=== PATIENT | male | born 1950 | race Hispanic/Latino ===

== ENCOUNTER 2024-04-25 21:35 | Emergency (ER) | payer SELFPAY ==
[~2024-04-25] VITALS: Ht 165.1 cm; Wt 74.8 kg
[2024-04-25 21:40] VITALS: BP 155/91; PULSE 66; RESP 20; TEMP 97.4
[2024-04-25] MEDS: FLUORESCEIN SODIUM 1 STRIP STRIP OP SCH (22:00)
[2024-04-25] MEDS: TETRACAINE HCL 0.5% 4 ML OPHTH SOLN OP SCH (22:00)
--- NOTE | 2024-04-25 23:07 | ERN ---
ED Note History of Present Illness Stated Complaint: C/O REDNESS TO LEFT EYE X 5 DAYS Chief Complaint: Eye Problems Time Seen by MD: 21:42 Time Seen by Midlevel: 21:42 Dictation: The patient is a 74-year-old male no past medical history who presents to the emergency department with complaints of left eye pain onset five days ago after he said he had a piece of trash in his eye. Patient denies any visual deficits but reports discomfort with sunlight. No other injuries reported. Past Medical History Past Medical History: No Pertinent History Surgical History: None RN Note Reviewed/Agreed w/PFSH: Yes Review of System Dictation Constitutional: Negative for fever,chills, and weight loss Eyes: Negative for discharge positive for redness, injury, left eye ENT: Negative for injury,pain or swelling Cardiovascular: Negative for chest pain, palpitations, and edema Respiratory: Negative for shortness of breath, cough, and wheezing, Abdomen/GI: Negative for abdominal pain, nausea, vomiting, diarrhea, and constipation Back: Negative for injury and pain : Negative for injury, bleeding and discharge MS/Extremity: Negative for injury and deformity Skin: Negative for rash, and discoloration Neuro: Negative for headache, weakness, numbness, tingling, and seizure Psych: Negative for suicide ideation, homicidal ideation, and hallucinations Initial Vital Sign VS Vital Signs Date Time Temp Pulse Resp B/P (MAP) Pulse Ox O2 Delivery O2 Flow Rate FiO2 04/25/24 21:40 97.3 66 20 155/91 99 Room Air Physical Exam Dictation Vital Signs reviewed General Appearance: Alert, oriented x 3, no acute distress, well developed, nourished. Head and Face: non-traumatic. Eyes: PERRL, pink conjunctivas, erythema sclera to left eye eyelid no trauma, anterior chamber with arcus senilis. Ears: Pinnas intact and no signs of trauma or erythema ear canals clear and no discharge TM no erythema Nose: No discharge, no bleeding. Oropharynx: Mouth normal, tongue pink. pharynx clear,no erythema, tonsils no exudates, no abscesses noted, mucous membrane moist Neck: Supple, non-tender, no thyromegaly, no masses, no JVD, no bruits Breast:Deferred Chest:No tenderness, no crepitus, no paradoxical movement, no retractions Lungs:Clear, well-ventilated, symmetric, no rales, no wheezing, no rhonchi, no stridor, good breath sounds bilaterally Heart: Regular rate, regular rhythm, no murmur, no gallops Vascular: no peripheral edema, Abdomen: Soft, positive bowel sounds, nondistended, no guarding, nontender, no rebound, no masses no hepatomegaly, no splenomegaly, no Santizo's sign, no hernias. Rectal: Deferred Genital: Deferred Neurological: Normal speech, motor function intact, sensory function intact Musculoskeletal: Neck nontender, full range of motion, back nontender, full range of motion, Extremities: nontender, full range of motion Skin: Color pink, dry, no turgor, no rash, no lacerations, no abrasions, no contusions. Lymphatic: Deferred Results (Laboratory/Radiology) Labs Reviewed?: Yes ED Course ED Course Orders Procedure Category Date Status Time Tetracaine Hcl PHA 04/25/24 In Process (Pontocaine 0.5% 22:00 Fluorescein Sodium PHA 04/25/24 In Process (Kgkin-C-Ctrir At) 22:00 Visual Acuity Test CPOE 04/25/24 Transmitted (Er) 21:58 Current Medications Medications (Trade) Dose Ordered Sig/[place] Route PRN Reason Start Time Stop Time Status Last Admin Dose Admin Fluorescein Sodium (Foahw-Q-Wbsue At) 1 strip ONCE OP 04/25/24 22:00 05/25/24 21:59 Tetracaine HCl (Pontocaine 0.5% Ophth Soln) 1 OR 2 DROPS ONCE OP 04/25/24 22:00 05/25/24 21:59 Vital Signs Date Time Temp Pulse Resp B/P (MAP) Pulse Ox O2 Delivery O2 Flow Rate FiO2 04/25/24 21:40 97.3 66 20 155/91 99 Room Air Medical Decision Making MDM The patient is a 74-year-old male no past medical history who presents to the emergency department with complaints of left eye pain onset five days ago after he said he had a piece of trash in his eye. Patient denies any visual deficits but reports discomfort with sunlight. No other injuries reported. Eye exam revealed a small corneal abrasion at the 7 o clock. No foreign body identified. Patient's eye irrigated. Patient will be treated with the erythromycin and to follow up with Ophthalmology. Patient reports no facial deficits. Acuity exam unremarkable. Differential diagnosis: Corneal abrasion, eye foreign body, conjunctivitis Need for hospitalization: Patient does not meet criteria for hospitalization. There are no social concerns with this patient. DX & DISP Disposition: Discharge Departure Impression: Primary Impression: Corneal abrasion Additional Impression: Corneal abrasion, left Condition: Stable Scripts Erythromycin Base (Erythromycin) 5 Mg/Gram (0.5 %) Oint...g. 1 CM OP QID for 5 Days, #1 UNIT Prov: PARAM KEYS 04/26/24 Additional Instructions: Please follow up with the Ophthalmology as soon as possible. [facility] [place] [id number] [place] [address] FOLLOW-UP WITH PRIMARY CARE PROVIDER IN 1 TO 2 DAYS. TAKE MEDICATIONS DIRECTED HERE IN THE EMERGENCY ROOM. OKAY TO CONTINUE HOME MEDICATIONS UNLESS OTHERWISE DISCUSSED DURING YOUR VISIT IN THE EMERGENCY ROOM TODAY. RETURN TO YOUR NEAREST EMERGENCY ROOM IF SYMPTOMS WORSEN OR IF THERE IS NO IMPROVEMENT. CALL 911 IF YOU NEED IMMEDIATE ASSISTANCE. TAKE TYLENOL OR MOTRIN [id number] NEEDED AND IF NO CONTRAINDICATIONS ARE PRESENT. INCREASE ORAL HYDRATION. A WOUND CULTURE OR URINE CULTURE WAS ORDERED HERE IN THE EMERGENCY ROOM DEPARTMENT PLEASE FOLLOW-UP WITH PRIMARY CARE PROVIDER AND ADVISE THEM TO GET REPEAT PORTS FROM OUR FACILITY. IF YOU HAD ANY JULIANE WRAP/SPLINTS THAT WERE APPLIED HERE, PLEASE DO NOT REMOVE THEM UNTIL YOU SEE YOUR PRIMARY CARE OR SPECIALTY. Referrals: SELF,REFERRAL (PCP) Time of Disposition: 00:37 I have reviewed the case, and I agree with, Diagnosis and Plan PARAM KEYS Apr 25, 2024 23:07
[2024-04-26] MEDS ORDERED: ERYT1OIN7 OP (00:33)
== END 2024-04-26 00:44 | disposition home or self-care (01) ==
LOC: EDH 21:35
DX: S05.02XA Injury of conjunctiva and corneal abrasion without foreign body, left eye, initial encounter (principal); X58.XXXA Exposure to other specified factors, initial encounter; Y93.89 Activity, other specified; Y92.89 Other specified places as the place of occurrence of the external cause; Y99.8 Other external cause status
CPT/HCPCS: 99283